=== PATIENT | male | born 1995 | race Caucasian/White ===

== ENCOUNTER 2017-12-27 08:06 | Inpatient (IN) | payer OTHER ==
[~2017-12-27 08:06] MED LIST: Acetaminophen TAB* 325 MG PO ONE; Buffered Lidocaine 0.9% SYRIN* 5 ML/SYR SYRINGE INTRADERM ONE; Gabapentin CAP(*) 300 MG PO ONE
[2017-12-27] MEDS ORDERED: Gabapentin CAP(*) 300 MG ONE (08:26)
[2017-12-27] MEDS ORDERED: Acetaminophen TAB* 325 MG ONE (08:27)
[2017-12-27] MEDS ORDERED: ceFAZolin 2 GM PREMIX in ORs 2 GM/50 ML BAG IVPB ONE (08:27)
[2017-12-27] MEDS ORDERED: Midazolam* 1 MG/ML 2 ML VIAL (2 MG) ONE (08:52)
[2017-12-27] MEDS ORDERED: fentaNYL* 50 MCG/ML 2 ML VIAL (100 MCG VIAL) ONE ×2 (08:52→09:55)
[2017-12-27 09:03] LABS: ABS Basophils 0 10^3/ul (0-0.2); ABS Eosinophils 0.1 10^3/ul (0-0.6); ABS Lymphocytes 1.7 10^3/ul (1.0-4.8); ABS Monocytes 0.7 10^3/ul (0-0.8); ABS Nucleated RBC 0 10^3/ul; Eosinophil % 2.4 % (0-6); Hematocrit 47 % (42-52); Hemoglobin 16.3 g/dl (14.0-18.0); Lymphocyte % 31.2 % (25-47); Mean Corpuscular HGB Conc 35 g/dl (31-36); Mean Corpuscular Hemoglobin 34 pg (27-31); Mean Corpuscular Volume 98 fL (80-94); Mean Platelet Volume 9.7 um3 (7.4-10.4); Nucleated Red Blood Cells % 0.1; Platelet Count 221 10^3/ul (150-450); Red Blood Count 4.79 10^6/ul (4.00-5.40); Red Cell Distribution Width 13 % (10.5-15); White Blood Count 5.5 10^3/ul (3.5-10.8)
[2017-12-27] MEDS ORDERED: Fluorescein 10% INJ* 100 MG/ML AMP ONE (09:11)
[2017-12-27] MEDS ORDERED: Bupivacaine 0.5% W/EPI SDV* 30 ML VIAL ONE (09:12)
[2017-12-27] MEDS ORDERED: Ketorolac INJ* 30 MG/ML 1 ML VIAL ONE (09:34)
[2017-12-27] MEDS ORDERED: Propofol* 10 MG/ML 20 ML BTL IV PUSH ONE (09:34)
[2017-12-27] MEDS ORDERED: Dexamethasone IV* 4 MG/ML 1 ML (4 MG) ONE (09:34)
[2017-12-27] MEDS ORDERED: Rocuronium* 10 MG/ML VIAL ONE (09:34)
[2017-12-27] MEDS ORDERED: Famotidine IV* 10 MG/ML 2 ML (20 mg) ONE (09:34)
[2017-12-27] MEDS ORDERED: Lidocaine 2% PF * 5 ML VIAL ONE (09:34)
[2017-12-27] MEDS ORDERED: Ondansetron INJ* 2 MG/ML VIAL ONE (09:34)
[2017-12-27] MEDS ORDERED: HYDROcodone/ACETAMIN 5-325 MG* 1 TAB PO PRN ×2 (09:59)
[2017-12-27] MEDS ORDERED: fentaNYL* 50 MCG/ML 2 ML VIAL (100 MCG VIAL) IV PRN (09:59)
[2017-12-27] MEDS ORDERED: HYDROmorphone INJ1* 1 MG/ML SYRINGE IV PRN ×2 (09:59→14:07)
[2017-12-27] MEDS ORDERED: Ondansetron INJ* 2 MG/ML VIAL IV PRN ×2 (09:59→14:08)
[2017-12-27] MEDS ORDERED: DiMENhydriNATE IV* 50 MG/ML VIAL IV PUSH PRN (09:59)
[2017-12-27] MEDS ORDERED: Acetaminophen TAB* 325 MG PO PRN (09:59)
[2017-12-27] MEDS ORDERED: Naloxone* 0.4 MG/ML 1 ML VIAL IV PRN (09:59)
[2017-12-27] MEDS ORDERED: PROCHLORPERAZINE INJ 5 MG/ML 2 ML VIAL IV PRN (09:59)
[2017-12-27] MEDS ORDERED: diPHENhydraMINE IV* 50 MG/ML 1 ml VIAL (BENADRYL) IV PRN (09:59)
[2017-12-27] MEDS ORDERED: HYDROmorphone INJ1* 1 MG/ML SYRINGE ONE (11:01)
[2017-12-27] MEDS ORDERED: oxyCODONE/Acetamin 5/325 MG* TAB PO PRN ×2 (14:05→18:46)
[2017-12-27] MEDS: Ibuprofen TAB* 600 MG PO PRN (17:28)
[2017-12-27 18:58] LABS: Hematocrit 42 % (42-52); Hemoglobin 14.6 g/dl (14.0-18.0)
--- NOTE | 2017-12-28 06:54 | OP ---
DATE OF OPERATION: 12/27/17 - ROOM #351 DATE OF : [birth year] SURGEON: Munir Cedeno MD CLINICAL EXERCISE SPECIALIST: Dr. Cope. ANESTHESIA: General endotracheal tube. 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 OPERATIVE PROCEDURE: Total laparoscopic hysterectomy and bilateral salpingo- oophorectomy and cystoscopy. ESTIMATED BLOOD LOSS: 650 cc. SPECIMEN: Include uterus, tubes and ovaries. FINDINGS: Include a normal uterus, tubes, ovaries, and appendix and liver surface. There was a double ureter on the left on cystoscopy. DESCRIPTION OF PROCEDURE: The patient identified, procedure identified as a laparoscopic hysterectomy and bilateral salpingo-oophorectomy. The patient was taken to the operating room, prepped and draped in the usual fashion in the dorsal lithotomy position under general anesthesia. A single-tooth tenaculum was placed in the anterior lip of the cervix. The cervix was dilated up to #7 Hegar dilator and a small VCare was placed and a catheter was placed. A small infraumbilical incision was made and Veress needle inserted through this. The abdomen was then insufflated with 50 mmHg. The Veress needle was removed and then a trocar was inserted using the Visiport. Visiport was removed from the sheath and the laparoscope was inserted and the above findings were noted. A second incision was made 8 cm lateral to the umbilicus on the left and a 5-mm port was placed on that side. The 5-mm port in the midline was replaced with a 10/12 port and a 5-mm port was placed under direct visualization on the right hand side approximately 8 cm lateral to the umbilicus. The above findings were noted. The ovarian ligament on the left was ligated using the LigaSure and the broad ligament was also ligated and then incised and this was brought down to the level of the round ligament and this was cauterized and incised. A bladder flap was created via sharp dissection using the LigaSure and the bladder was dissected caudally. The broad ligament again was dissected both the anterior leaf and the posterior leaf exposing the uterine vessels, which were cauterized using the LigaSure. The same procedure was carried out on the right starting with the infundibular pelvic ligament, which was ligated and incised. The broad ligament was ligated and incised right down to the round ligament. The round ligament on the right was ligated and incised and the bladder flap was created to combine together on both sides and the bladder was dissected further caudally. The uterine vessel was ligated using the LigaSure and brought down below the level of the cuff rim on the VCare on both sides. Hemostasis was verified. Using the unipolar cautery on a 25 /25 valley lab the cuff was incised and Green VCare rim was exposed. This was brought around on both sides until the care was taken to avoid the bowel and the uterus was brought once it was completely free from the vaginal cuff, was brought out through the vaginal incision. Hemostasis was verified. The cuff was closed using 2-0 barbed suture and a delayed absorbable suture and was closed from the right side at right angle over to the left angle. Good hemostasis was verified. Copious irrigation was utilized and suctioned out. Attention was then turned to the cystoscopy portion. 50 mg of fluorescein was given and the cystoscope was inserted. The dome was found to be clear of any damage. The left ureter contained 2 openings both spilling of fluorescein during ureteral peristalsis and on the right 1 opening was found to have fluorescein extruded_ from it. Good hemostasis was verified. All instruments were removed from the vagina and Healy was replaced. The fascial incision on the umbilicus was closed using 2- 0 Polysorb in a simple fashion and then the skin was closed using 4-0 Vicryl in a simple fashion. Good hemostasis was verified. The abdomen was deflated of CO2 and the other trocars were removed and the rest of the skin was closed using skin glue. All sponge and instruments counts were correct and the patient returned to recovery room in stable condition. [id number]/[id number] #: [id number] [facility]Doug
[2017-12-28] MEDS: Ibuprofen TAB* 600 MG PO PRN (08:02)
[2017-12-28 08:15] VITALS: BP 98/54
[2017-12-30] MEDS ORDERED: Scopolamine PATCH Remove* 1 NOTE MISC PATCH OFF ONE (10:00)
== END 2017-12-28 09:25 | disposition home or self-care (01) | DRG 876 ==
LOC: OR 08:06 → SSU 13:13
PROVIDERS: ADMIT Obstetrics & Gynecology; ATTEND Obstetrics & Gynecology
PROC: 0UT2FZZ Resection of Bilateral Ovaries, Via Natural or Artificial Opening With Percutaneous Endoscopic Assistance (ICD-10-PCS; 2017-12-27)
PROC: 0UT7FZZ Resection of Bilateral Fallopian Tubes, Via Natural or Artificial Opening With Percutaneous Endoscopic Assistance (ICD-10-PCS; 2017-12-27)
PROC: 0UT9FZZ Resection of Uterus, Via Natural or Artificial Opening With Percutaneous Endoscopic Assistance (ICD-10-PCS; principal; 2017-12-27 09:30)
DX: F64.8 Other gender identity disorders (principal); Q62.5 Duplication of ureter; Z90.13 Acquired absence of bilateral breasts and nipples; Z80.0 Family history of malignant neoplasm of digestive organs; Z82.49 Family history of ischemic heart disease and other diseases of the circulatory system; Z82.0 Family history of epilepsy and other diseases of the nervous system
CPT/HCPCS: 36415; 81025; 85014; 85018; 85025; 86850; 86900; 86901; 88307; A9270-GY; J0690; J1100; J1170; J1885; J2250; J2405; J2704; J3010